=== PATIENT | male | born 1960 | race Caucasian/White ===

== ENCOUNTER 2019-11-01 20:54 | Outpatient (REF) | payer OTHER, SELFPAY ==
[2019-11-01 21:07] LABS: Abs Immature Grans 0.02 k/cumm (0.0-0.09); Absolute Basophil Count 0.02 k/cumm (0.0-0.2); Absolute Eosinophil Count 0.16 k/cumm (0.0-0.7); Absolute Lymphocyte Count 0.44 k/cumm (1.2-3.4); Absolute Monocyte Count 1.15 k/cumm (0.11-0.7); Absolute Neutrophil Count 6.25 k/cumm (1.2-6.7); Basophils % 0.2; HCT 37.4 % (40.0-50.0); HGB 11.9 g/dL (13.5-17.5); Immature Grans % 0.2; Lymphocytes % 5.5; Mean Corp. HGB Concentration 31.8 g/dL (32.0-36.0); Mean Corpuscular Hemoglobin 27.3 pg (27.0-33.0); Mean Corpuscular Volume 85.8 fL (80-95); Mean Platelet Volume 9.7 fL (8.0-11.0); Monocytes % 14.3; Neutrophils % 77.8; Platelet Count 396 x1000/uL (130-400); RBC 4.36 m/cumm (4.50-6.00); RBC Distribution Width 14.6 % (11.8-14.1); White Blood Cell Count 8.04 k/cumm (4.4-10.8)
[2019-11-01 21:12] LABS: ALT 29 U/L (16-63); AST 11 U/L (15-37); Albumin 3.2 g/dL (3.4-5.0); Alkaline Phosphatase 61 U/L (46-116); Anion Gap 13.4 mmol/L (3-11); BUN 14 mg/dL (7-18); Bilirubin, Total 0.5 mg/dL (0.2-1.0); CO2 25.6 mmol/L (21.0-32.0); CREATININE 1.04 mg/dL (0.70-1.30); Calcium 9.1 mg/dL (8.5-10.1); Calculated LDL 92 mg/dL; Chloride 103 mmol/L (98-107); Cholesterol 140 mg/dL (<200); Glucose 92 mg/dL (74-106); HDL Cholesterol 39 mg/dL (40-60); Potassium 4.7 mmol/L (3.5-5.1); Sodium 142 mmol/L (136-145); TSH (W/Ref FT4) 1.78 uIU/mL (0.36-3.74); Triglyceride 47 mg/dL (<150)
[2019-11-01 21:25] LABS: Total Protein 6.9 g/dL (6.4-8.2)
[2019-11-01 21:59] LABS: ESR 107 mm/hr (1-20)
[2019-11-03 15:16] LABS: PSA, Screening 11.9 ng/mL (0.0-4.5)
[2019-11-04 12:51] LABS: IgA 134 mg/dL (85-499); Tissue Transglutaminase IgA <1.2 U/mL (<4.0)
== END 2019-11-01 21:14 ==
LOC: NCHCN 20:54
PROVIDERS: Visit Provider Family Medicine
DX: R10.30 Lower abdominal pain, unspecified (principal); R19.7 Diarrhea, unspecified; R53.83 Other fatigue; R63.4 Abnormal weight loss; R39.11 Hesitancy of micturition; Z12.5 Encounter for screening for malignant neoplasm of prostate
CPT/HCPCS: 80053; 80061; 82784; 83516; 84153; 85652; 84443; 85025; 86140

== ENCOUNTER 2021-01-31 13:28 | Outpatient (REF) | payer OTHER, SELFPAY ==
[2021-01-31 14:23] LABS: Anion Gap 12.3 mmol/L (3-11); BUN 20 mg/dL (7-18); CO2 22.7 mmol/L (21.0-32.0); CREATININE 1.1 mg/dL (0.70-1.30); Calcium 9.3 mg/dL (8.5-10.1); Calculated LDL 139 mg/dL (<100); Chloride 106 mmol/L (98-107); Cholesterol 209 mg/dL (<200); Glucose 112 mg/dL (74-106); HDL Cholesterol 42 mg/dL (40-60); Potassium 4.2 mmol/L (3.5-5.1); Sodium 141 mmol/L (136-145); Triglyceride 140 mg/dL (<150)
[2021-01-31 14:52] LABS: Hemoglobin A1C 5.4 % (<5.7)
== END 2021-01-31 13:29 | disposition home or self-care (01) ==
LOC: NCHCN 13:28
PROVIDERS: Visit Provider Internal Medicine
DX: R73.9 Hyperglycemia, unspecified (principal); R79.89 Other specified abnormal findings of blood chemistry; E66.9 Obesity, unspecified; R97.20 Elevated prostate specific antigen [PSA]; Z12.5 Encounter for screening for malignant neoplasm of prostate
CPT/HCPCS: 80048; 80061; 84153; 83036

== ENCOUNTER 2021-12-18 16:47 | Outpatient (REF) | payer OTHER, SELFPAY ==
[2021-12-18 23:05] LABS: PSA, Diagnostic 9.3 ng/mL (0.0-4.5)
== END 2021-12-18 16:48 | disposition home or self-care (01) ==
LOC: NCHCN 16:47
PROVIDERS: Visit Provider Internal Medicine
DX: R97.20 Elevated prostate specific antigen [PSA] (principal)
CPT/HCPCS: 84153

== ENCOUNTER 2022-08-28 15:18 | Outpatient (REF) | payer OTHER, SELFPAY ==
[2022-08-28 15:49] LABS: ALT 45 U/L (16-63); AST 24 U/L (15-37); Albumin 4.3 g/dL (3.4-5.0); Alkaline Phosphatase 74 U/L (46-116); BUN 17 mg/dL (7-18); Bilirubin, Total 0.5 mg/dL (0.2-1.0); Calcium 8.8 mg/dL (8.5-10.1); Calculated LDL 95 mg/dL (<100); Chloride 104 mmol/L (98-107); Cholesterol 197 mg/dL (<200); Estimated GFR 84.57 (mL/min/1.73m2); Glucose 160 mg/dL (74-106); HDL Cholesterol 40 mg/dL (40-60); Potassium 4.1 mmol/L (3.5-5.1); Sodium 140 mmol/L (136-145); Total Protein 6.9 g/dL (6.4-8.2); Triglyceride 310 mg/dL (<150)
== END 2022-08-28 15:19 | disposition home or self-care (01) ==
LOC: NCHCN 15:18
PROVIDERS: Visit Provider Internal Medicine
DX: E66.8 Other obesity (principal); R39.11 Hesitancy of micturition; Z13.220 Encounter for screening for lipoid disorders; Z12.5 Encounter for screening for malignant neoplasm of prostate
CPT/HCPCS: 80053; 80061; 84153

== ENCOUNTER 2023-02-24 11:18 | Outpatient (REF) | payer OTHER, SELFPAY ==
[2023-02-24 23:17] LABS: PSA, Screening 8.3 ng/mL (<=4.5)
== END 2023-02-24 11:19 | disposition home or self-care (01) ==
LOC: NCHCN 11:18
PROVIDERS: Visit Provider Internal Medicine
DX: R97.20 Elevated prostate specific antigen [PSA] (principal)
CPT/HCPCS: 84153

== ENCOUNTER 2024-01-30 08:05 | Outpatient (REF) | payer OTHER, SELFPAY ==
[2024-01-30 14:47] LABS: BUN 18 mg/dL (7-18); CREATININE 1.2 mg/dL (0.70-1.30); Calculated LDL 85 mg/dL (<100); Chloride 106 mmol/L (98-107); Cholesterol 177 mg/dL (<200); Estimated GFR 67.53 (mL/min/1.73m2); Glucose 140 mg/dL (74-106); HDL Cholesterol 41 mg/dL (40-60); Potassium 3.9 mmol/L (3.5-5.1); Sodium 142 mmol/L (136-145); Triglyceride 259 mg/dL (<150)
[2024-01-30 22:30] LABS: PSA, Screening 8.8 ng/mL (<=4.5)
== END 2024-01-30 08:06 | disposition home or self-care (01) ==
LOC: NCHCN 08:05
PROVIDERS: PCP Internal Medicine; Visit Provider Internal Medicine
DX: Z00.00 Encounter for general adult medical examination without abnormal findings (principal); Z13.220 Encounter for screening for lipoid disorders; Z13.228 Encounter for screening for other metabolic disorders; Z12.5 Encounter for screening for malignant neoplasm of prostate
CPT/HCPCS: 80048; 80061; 84153

== ENCOUNTER 2024-08-02 16:32 | Outpatient (REF) | payer MEDICARE, SELFPAY ==
[2024-08-02 16:11] LABS: Calculated LDL 101 mg/dL (<100); Cholesterol 189 mg/dL (<200); Glucose 142 mg/dL (74-106); HDL Cholesterol 41 mg/dL (40-60); Triglyceride 235 mg/dL (<150)
--- OUTSIDE RECORDS SUMMARY | 2024-08-02 16:38 | XMS_ITS | Data Portability ---
Author Organization [facility] Address [address] [place] [address] Care Team Providers Care Tape Controlled Machine Stitcher Name Role Phone M HEMATOLOGY AND ONCOLOGY Medical Oncologist Assessment No assessment recorded. Plan of Treatment Reminders Order Date Submit Date Provider Last Modified By Organization Details Last Modified Time Details Appointments Nurse Visit 2023 07:40A M Not available Not available Not available Follow Up 2023 09:20A M Not available Not available Not available Lab lipid panel, serum [address] [facility] (Registration ), [address] [place] [address] [place], [address], 02/06/2024 11:17:30 BMP, serum or plasma [address] [facility] (Registration ), [address] [place] [address] [place], [address], 02/06/2024 11:17:39 PSA, serum or plasma [address] [facility] (Registration ), [address] [place] [address] [place], [address], 02/06/2024 11:17:52 glucose, fasting, QN, serum or plasma 2023 024 [facility] ([facility] ), [address] [place] [address] [place], [address], 08/02/2024 07:50:28 PSA, serum or plasma 03/2023 [facility] [address] [place] [address] [place] [facility] [place], [address], 08/02/2024 07:50:28 lipid panel, serum 2023 [facility] ), [address] [place] [address] [place], [address], 08/02/2024 07:50:28 glucose, fasting, QN, serum or plasma 2023 [facility] ), [address] [place] [address] [place], [address], 08/02/2024 07:50:28 PSA, serum or plasma 2023 [facility] ), [address] [place] [address] [place], [address], 08/02/2024 07:50:28 lipid panel, serum 2023 024 [facility] ), [address] [place] [address] [place], [address], 08/02/2024 07:50:28 Referral None recorded . Procedures None recorded . Surgeries None recorded . Imaging None recorded . Medication Orders None recorded . Patient TargetsNo targets recorded. Patient Instructions Encounter Date Encounter Id Patient Instructions Last Modified By Organization Details Last Modified Time 02/06/2024 [id number] Try to increase water intake, try lemon water Limit the bagels with cream cheese Try more whole wheat toast with peanut butter Try plain yogurt with nuts and berries and flaxseed or something for higher protein healtheir breakfast Try alternative snacks instead of the granola bar - carrots, cottage cheese, nuts Get an audiology check at [facility] when you can [email or web address] Not available 02/06/2024 13:33:48 Reason for Referral None Reported. Results Created Date Observation Date Name Description Value Unit Range Abnormal Flag Note LastModifiedBy Organization Detail LastModifiedTime 03/15/01/30/2024 LASIC METAB OLIC PANEL calcium 9.0 mg/dL 8.5-10 .1 normal Not Available [address] [place], [address] 01/30/2024 14:50:42 01/30/20 24 01/30/2024 LASIC METAB OLIC PANEL glucose 140 mg/dL 74-106 high Not Available Lara oliveira [address] [place], [address] 01/30/2024 14:50:42 01/30/20 24 01/30/2024 LASIC METAB OLIC PANEL BUN 18 mg/dL 7-18 normal Not Available Lara oliveira [address] [place], [address] 01/30/2024 14:50:42 01/30/20 24 01/30/2024 LASIC METAB OLIC PANEL creatinine 1.2 mg/dL 0.70-1 .30 normal Not Available [address] [place], [address] 01/30/2024 14:50:42 01/30/20 24 01/30/2024 LASIC METAB OLIC PANEL estimated GFR 67.53 mL/min /1.73m 2 The eGFR is calcu lated from a serum creat inine using the CKD-E PI 2020 equat ion. Other varia bles requi red for the equat ion are gende r and age; this equat ion does not inclu de a race coeff icien t. This equat ion has simil ar overa ll perfo rmanc e to previ ous equat ions excep t value s may diffe r, in parti cular , in patie nts with highe r value s of eGFR and young er-ag ed adult s. Not Available [address] [place], [address] 01/30/2024 14:50:42 01/30/20 24 01/30/2024 LASIC METAB OLIC PANEL sodium 142 mmol/ L 136-14 5 normal Not Available [address] [place], [address] 01/30/2024 14:50:42 01/30/20 24 01/30/2024 LASIC METAB OLIC PANEL potassium 3.9 mmol/ L 3.5-5. 1 normal Not Available [address] [place], [address] 01/30/2024 14:50:42 01/30/20 24 01/30/2024 LASIC METAB OLIC PANEL chloride 106 mmol/ L 98-107 normal Not Available [address] [place], [address] 01/30/2024 14:50:42 01/30/20 24 01/30/2024 LASIC METAB OLIC PANEL CO2 22.0 mmol/ L 21.0-3 2.0 normal Not Available [address] [place], [address] 01/30/2024 14:50:42 01/30/20 24 01/30/2024 LASIC METAB OLIC PANEL anion gap 14.0 mmol/ L 3-11 high Not Available [address] [place], [address] 01/30/2024 14:50:42 01/30/20 24 01/30/2024 LIPID 2 cholesterol 177 mg/dL <200 Not Available [address] [place], [address] 01/30/2024 14:50:42 01/30/20 24 01/30/2024 LIPID 2 triglyceride 259 mg/dL <150 high Not Available [address] [place], [address] 01/30/2024 14:50:42 01/30/20 24 01/30/2024 LIPID 2 HDL cholesterol 41 mg/dL 40-60 Not Available [address] [place] [place], [address] 01/30/2024 14:50:42 01/30/20 24 01/30/2024 LIPID 2 calculated LDL 85 mg/dL <100 Natio nal Serena stero l Educa tion Progr am (NCEP -ATPI II) class ifica tions : Serena stero l <200 mg/dL Brendon able Serena stero l 200-2 39 mg/dL Borde rline High Serena stero l >or=2 40 mg/dL High HDL <40 mg/dL Low HDL >or=6 0 mg/dL High LDL <100 mg/dL Optim al LDL 100-1 29 mg/dL Near Optim al/Ab ove Optim al LDL 130-1 59 mg/dL Borde rline High LDL 160-1 89 mg/dL High LDL >or=1 90 mg/dL Very High *The above refer ence range is for adult s 18 years or older . Not Available [address] [place], [address] 01/30/2024 14:50:42 01/30/2001/30/2024 PSA, SCREE MELINDA PSA, screening 8.8 NG/mL <=4.5 abnormal NOTE: Serum PSA leeann ntrat ion shoul d not be inter prete d as absol yomba shoshone evide nce for the prese nce or absen ce of suzanen rosas se. Assay ed on Sieme ns ADVIA Centa ur XPT using chemi lumin escen t techn ology . Value s obtai genoveva by using diffe rent assay metho ds canno t be used inter carver eably . Test perfo rmed or refer red by [facility] [address] [place] [address] Not Available [address] [place], [address] 02/02/2024 08:39:30 08/02/20 24 08/02/2024 GLUCO SE glucose 142 mg/dL 74-106 high Not Available Lara oliveira [address] [place], [address] 08/02/2024 16:16:46 08/02/20 24 08/02/2024 LIPID 2 cholesterol 189 mg/dL <200 Not Available [facility] [address] [place], [address] 08/02/2024 16:16:47 08/02/20 24 08/02/2024 LIPID 2 triglyceride 235 mg/dL <150 high Not Available [address] [place], [address] 08/02/2024 16:16:47 08/02/20 24 08/02/2024 LIPID 2 HDL cholesterol 41 mg/dL 40-60 Not Available [place] [address] [facility] [place], [address] 08/02/2024 16:16:47 08/02/20 24 08/02/2024 LIPID 2 calculated LDL 101 mg/dL <100 high Natio nal Serena stero l Educa tion Progr am (NCEP -ATPI II) class ifica tions : Serena stero l <200 mg/dL Brendon able Serena stero l 200-2 39 mg/dL Borde rline High Serena stero l >or=2 40 mg/dL High HDL <40 mg/dL Low HDL >or=6 0 mg/dL High LDL <100 mg/dL Optim al LDL 100-1 29 mg/dL Near Optim al/Ab ove Optim al LDL 130-1 59 mg/dL Borde rline High LDL 160-1 89 mg/dL High LDL >or=1 90 mg/dL Very High *The above refer ence range is for adult s 18 years or older . Not Available [address] [place], [address] 08/02/2024 16:16:47 07/30/20 24 10/25/2021 XR, foot, 3 or more view No observ ation record ed. Not Available 07/30 01:22:56 07/30/20 24 11/11/2019 CT, abdom en + pelvi s, w/ contr ast No observ ation record ed. Not Available 07/30 01:22:57 07/30/20 24 10/25/2021 XR, ankle , 3 or more view No observ ation record ed. Not Available 07/30 01:22:58 07/30/20 24 11/02/2019 XR, kidne y + urete r + bladd er No observ ation record ed. Not Available 07/30 01:23:00 07/30/20 24 05/03/2021 CT, abdom en, w/ contr ast No observ ation record ed. Not Available 07/30 01:23:53 07/30/20 24 11/02/2019 XR, chest No observ ation record ed. Not Available 07/30 01:23:56 07/30/20 24 09/11/2020 CT, abdom en + pelvi s No observ ation record ed. Not Available 07/30 01:23:57 07/30/20 24 09/11/2020 CT, chest No observ ation record ed. Not Available 07/30 01:24:00 Result Notes None recorded. Problems Name Problem SNOMED Code Status Onset Date Resolution Date Notes Provider Name and Address Organization Details Recorded Time Kidney stone 48564212 Active 200602/01/20 21-nephr olithias is. Unknown stone type. Pain resolved after recent ED visit. Advised increasi ng water and trying lemon water. Creatini ne was elevated in the ED, will repeat today to ensure blood resoluti on to baseline . [place] [facility]. 4 19:25:25 History of polyp of colon 841978220 Active 201408/06/20 21-Hx of colonic polyps, adenomat ous -- Tubular adenomas 2020; 5-yr recall Virginiaher Gomez [facility] 4 19:24:30 Pain in finger of left hand 74506264328 9105 Active 2018 Virginia Patricia [facility] 4 19:27:13 Prostate specific antigen above referenc e range 120288342 Active 201811/02/20 19-speci fic antigen PSA 11.9 Virginiaher Gomez [facility]. 4 19:23:48 Diffuse large B-cell lymphoma 432302490 Active 201802/02/20 21-Diffu se large B-cell lymphoma -- RCHOP therapy with complete response , [facility] Virginiaher Gomez [facility] 4 19:22:22 Pain of right shoulder joint 44112534393 687440 [facility] 19:27:17 Obesity 235024340 Active 202002/01/20 21-blood pressure is at goal, will update lipids and A1c for screenin g today. Counsele ivette on lifestyl e changes to work on, congratu lated on cutting out sugar, advised increasi ng vegetabl e consumpt ion and water intake. Recent liver function tests were within normal limits and we will follow his yearly. [facility] 4 19:25:50 Eczema 29326341 Active 2020 Virginiaher Gomez [facility] 4 19:21:46 Obstruct ori sleep apnea syndrome 13126988 Active 2020 Virginiaher Gomez [facility] 4 19:26:14 Hyperlip idemia 31489761 Active 202009/04/20 22-CV risk is 11%-12%, informed of guidelin e recommen dation to start statin, he prefers to defer for now, will continue to monitor lipids yearly. also suggeste d increasi ng red yeast rice capsule but he prefers to keep it at 1 per day and follow over time. [facility] 4 19:23:01 Prostate specific antigen above referenc e range 589808042 Completed 202010/04/2021 Problem Code: R97.20; Problem Code Type: ICD-10; [facility] 4 19:23:48 Adult health examinat ion Active 2021 Virginia Gomez [facility] 4 19:27:26 Arthralg ia of the ankle and/or foot 198421635 Active 2022 Virginia Gomez [facility] 4 19:21:21 Pain of left shoulder joint 10412318166 448716 Active 2022 Virginia Patricia [facility] 4 19:26:48 History of SARS-CoV -2 11974122174 1686878 Completed 202203/03/2023 Problem Code: Z86.16; Problem Code Type: ICD-10; Not Available [facility] 3 05:17:45 Hypergly cemia 39949835 Completed 202009/04/2022 Problem Code: R73.9; Problem Code Type: ICD-10; Not Available [facility] 3 05:17:45 Benign neoplasm of colon 65012029 Completed 201408/13/2023 Problem Code: D12.6; Problem Code Type: ICD-10; Not Available [facility] 3 05:17:46 Abnormal weight loss 831238448 Completed 201801/31/2021 Problem Code: R63.4; Problem Code Type: ICD-10; Not Available [facility] 3 05:17:46 Generali zed hyperhid rosis 941687494 Completed 201803/03/2023 Problem Code: R61; Problem Code Type: ICD-10; Not Available [facility] 3 05:17:46 Diarrhea 26327880 Completed 201801/31/2021 Problem Code: R19.7; Problem Code Type: ICD-10; Not Available [facility] 3 05:17:46 Abdomina l pain 82451144 Completed 201801/31/2021 Problem Code: R10.9; Problem Code Type: ICD-10; Not Available [facility] 3 05:17:46 Hyperlip idemia screenin g Completed 201801/31/2021 Problem Code: Z13.220; Problem Code Type: ICD-10; Not Available [facility] 3 05:17:46 Hyperlip idemia screenin g Completed 202008/13/2023 Problem Code: Z13.220; Problem Code Type: ICD-10; Not Available [facility] 3 05:17:47 Imaging result abnormal 885989788 Completed 201812/06/2019 Problem Code: R93.89; Problem Code Type: ICD-10; Not Available [facility] 3 05:17:47 Synoviti s and tenosyno vitis 965415579 Completed 201808/13/2023 Problem Code: M65.9; Problem Code Type: ICD-10; Not Available [facility] 3 05:17:47 Anemia 918990139 Completed 201801/31/2021 Problem Code: D64.9; Problem Code Type: ICD-10; Not Available [facility] 3 05:17:47 Family history of malignan t neoplasm of digestiv e organ 272648789 Completed 201801/31/2021 Problem Code: Z80.0; Problem Code Type: ICD-10; Not Available [facility] 3 05:17:47 Non-Hodg kin's lymphoma (clinica l) 123027493 Completed 201808/13/2023 Problem Code: C85.98; Problem Code Type: ICD-10; Not Available [facility] 3 05:17:47 Lower urinary tract symptoms 773985002 Active 2023 KIMBERLY DONG MD [address], [place], [address] , [facility] 4 11:36:53 Problem Notes None recorded. Procedures Surgical History None recorded. Imaging Results Imaging Date Name Status LastModified by Organiz ation Details LastModified Time 10/25/2021 XR, foot, 3 or more view completed Information not available 07/30/2024 01:22:56 11/11/2019 CT, abdomen + pelvis, w/ contrast completed Information not available 07/30/2024 01:22:57 10/25/2021 XR, ankle, 3 or more view completed Information not available 07/30/2024 01:22:58 11/02/2019 XR, kidney + ureter + bladder completed Information not available 07/30/2024 01:23:00 05/03/2021 CT, abdomen, w/ contrast completed Information not available 07/30/2024 01:23:53 11/02/2019 XR, chest completed Information no t available 07/30/2024 01:23:56 09/11/2020 CT, abdomen + pelvis completed Information not available 07/30/2024 01:23:57 09/11/2020 CT, chest completed Information no t available 07/30/2024 01:24:00 Procedure Notes None recorded. Medical Equipment None Reported. Allergies No known drug allergies Medications Name Sig Start Date Stop Date Status Note LastModified by Organization Details LastModified Time Zyrtec 10 mg tablet 1 tab daily PRN 2020 active Not Available Not Available Not Avai lable flaxseed oil 1,000 mg capsule 2020 active Not Available Not Available Not Avai lable hydrocortis one 2.5 % topical cream apply cream twice a day as needed to affected area 2020 active Not Available Not Available Not Avai lable doxycycline hyclate 100 mg tablet Take 2 tabs po X 1 now 01/31 completed Not Available Not Available Not Available magnesium active Not Available Not Briana ilable Not Available red yeast rice 600 mg capsule daily 2020 active Not Available Not Available Not Avai lable Multivital 1 tab qd 2020 active Not Available Not Available Not Avai lable Probiotic 1 tab daily 2020 active Not Available Not Available Not Avai lable doxycycline hyclate 200 mg tablet,mary yed release Take one tablet by mouth now. 09/27 completed Not Available Not Available Not Available Paxlovid 300 mg (150 mg x 2)-100 mg tablets in a dose pack Take 3 tablet by mouth twice a day 12/03 completed Not Available Not Available Not Available Vitals Date Recorded Body height Body mass index (BMI) Body weight Body temperature Oxygen saturation Oxygen saturation in Arterial blood by Pulse oximetry Heart rate Systolic blood pressure Diastolic blood pressure Provider Name and Address Organization Details Last Updated DateTime 4 175.209 2 cm 38.7 kg/m2 287137. 92 g 97.6 [degF] 97 % 97 % 71 /min 128 mm[Hg] 76 mm[Hg] Faby Julian LPN [facility] 13:09:20 Social History Question Answer Notes LastModified by Organizat ion Details LastModified Time Tobacco Smoking Status Never Smoker Faby Julian LPN null, [facility] 02/06/2024 13:05:14 What Type Of Diet Are You Following? REGULAR [email or web address] Information n ot available 02/06/2024 How Many Times Per Week Do You Exercise? 1-2 Times Per Week [email or web address] Information not available 02/06/2024 Would You Say That, In General, Your Health Is Good Information not available 02/06/2024 How Often Does Anyone, Including Family, Physically Hurt You? Never [email or web address] Information not available 02/06/2024 How Often Does Anyone, Including Family, Insult Or Talk Down To You? Never [email or web address] Information no t available 02/06/2024 How Often Does Anyone, Including Family, Threaten You With Harm? Never [email or web address] Information not available 02/06/2024 How Often Does Anyone, Including Family, Scream Or Curse At You? Never [email or web address] Information not available 02/06/2024 Within The Past 12 Months, You Worried That Your Food Would Run Out Before You Got Money To Buy More. Never True [email or web address] Information n ot available 02/06/2024 Within The Past 12 Months, The Food You Bought Just Didn't Last And You Didn't Have Money To Get More. Never True Information n ot available 02/06/2024 How Hard Is It For You To Pay For The Very Basics Like Food, Housing, Medical Care, And Heating? Would You Say It Is: Not Hard At All [email or web address] Information not available 02/06/2024 In The Past 12 Months, Has Lack Of Reliable Transportation Kept You From Medical Appointments, Meetings, Work Or From Getting Things Needed For Daily Living? No [email or web address] Information not available 02/06/2024 What Is Your Housing Situation Today? I Have Housing. [email or web address] Information not available 02/06/2024 Who Do You Live With? , One Son [email or web address] Information not available 02/06/2024 How Often In The Past Year Have You Used Marijuana (including Smoking, Vaping, Dabbing, Or Edibles)? 4 Or More Times Per Week 1 Puff A Night [email or web address] Information not available 02/06/2024 How Often In The Past Year Have You Used Prescription Medications That Were Not Prescribed To You? Never [email or web address] Information n ot available 02/06/2024 How Often In The Past Year Have You Taken Your Own Prescription Medication More Than The Way It Was Prescribed Or For Different Reasons Than Its Intended Purpose? Never [email or web address] Information no t available 02/06/2024 How Often In The Past Year Have You Used Other Drugs (for Example, Heroin, Cocaine, Meth, Salvia, Inhalants)? Never [email or web address] Information not available 02/06/2024 Have You Ever Used IV Drugs? No [email or web address] Information not available 02/06/2024 Date Of Most Recent SBINS 02/06/2024 Information not available 02/06/2024 What Was The Date Of Your Most Recent Tobacco Screening? 02/06/2024 [email or web address] Information not available 02/06/2024 What Types Of Sporting Activities Do You Participate In? Walking, Active At Work, Carpentry [email or web address] Information not available 02/06/2024 Do You Have Any Dietary Restrictions? No [email or web address] Information not available 02/06/2024 Sex: Male Functional Status Question Answer Note LastModified by Organizat ion Details LastModified Time What is your exercise level? Occasional [email or web address] Information not available 02/06/2024 Mental Status None recorded. Family History Relationship Description Onset Age of this Age Resolved Age Notes Mother Family history of malignant neoplasm of lung Notes:*Problem: Mother: Dece ased, age 73, breast cancer Father: , 82, pancreatic cancer Brothers: 3 brothers, all well Children: 3 children (triplets) all well Medical History No medical history recorded. Immunizations Vaccine Type Date Status Provider Name and Address Organization Details Recorded Time Td (adult), 2 Lf tetanus toxoid, preservative free, adsorbed 12/18/2021 completed Not Available [facility] 09/26/2023 06:04:01 Influenza, split virus, quadrivalent, PF 09/04/2022 completed Not Available [facility] 09/26/2023 06:04:01 zoster recombinant 12/18/2021 completed Not Available [facility] 09/26/2023 06:04:01 zoster recombinant 02/25/2022 completed Not Available [facility] 09/26/2023 06:04:01 COVID-19, mRNA, LNP-S, PF, 100 mcg/0.5mL dose or 50 mcg/0.25mL dose 01/31/2021 completed Not Available [facility] 09/26/20 06:04:01 COVID-19, mRNA, LNP-S, PF, 100 mcg/0.5mL dose or 50 mcg/0.25mL dose 02/28/2021 completed Not Available [facility] 09/26/20 06:04:02 COVID-19, mRNA, LNP-S, PF, 100 mcg/0.5mL dose or 50 mcg/0.25mL dose 10/20/2021 completed Not Available [facility] 09/26/20 06:04:02 COVID-19, mRNA, LNP-S, bivalent, PF, 30 mcg/0.3 mL dose 10/16/2022 completed Not Available [facility] 09/26/2023 06:04:02 Past Encounters Encounter ID Performer Location Encounter Start Date Encounter Closed Date Diagnosis/Indication Diagnosis SNOMED-CT Code Diagnosis ICD10 Code [id number] YINKA PHILLIPS [address] [address] 01/30/2024 07:34:44 01/30/2024 07:42:43 Adult health examination 588521675 Z00.00 [id number] Faby Julian [address] [address] 02/06/2024 12:58:35 02/06/2024 14:03:01 Adult health examination 869630831 Z00.00 Obstructiv e sleep apnea syndrome 74308587 G47.33 Obesity 445592031 E66.9 Prostate s pecific antigen above reference range 473070802 R97.20 Hyperlipidemia 72535729 E78.5 Diffuse la rge B-cell lymphoma 518013503 C83.30 Lower urin celena tract symptoms 127321383 R39.9 [id number] YINKA PHILLIPS LPN [facility] [address] [place] [address] 08/02/2024 07:32:24 08/02/2024 07:43:07 Obesity 677161006 E66.9 Prostate s pecific antigen above reference range 404038719 R97.20 Hyperlipidemia 17698616 E78.5 Health Concerns Section Related Observation LastModified by Organization Detai ls LastModified Time None Recorded Concern Status LastModified by Organization Details LastModified Time None Recorded Advance Directives Directive None Recorded Payers Encounter Date Sequence Insurance Name Policy Number Policy Velasquez Covered Member ID Velasquez Member ID Guarantor Name 01/30/2024 1 [facility] ([facility] [id number] Geo Katharine Martinez [id number] Geo Martinez 02/06/2024 1 [facility] ([facility] [id number] Geo Katharine Martinez [id number] Geo Martinez 08/02/2024 1 [place] - [facility] (MEDICARE) Geo Martinez [id number] Geo Martinez Notes Date Note Type Note Provider Name and Address Organization Details Recorded Time 02/06/2024 text/html HPI Notes: Here for an annual exam. Overall, he feels well. Has been taking magnesium and b12 now to help wtih leg cramps and numbness/tingling in the feet - these have helped, pleased with improvement. He doesn't always drink enough water. The urinary symptoms are stable, has some urinary frequency during the day and reduced stream, but makes it through the night most of the time without getting up. His weight is up a bit. He feels he'll be able to increase walking now that his legs are feeling better. He hardly eats sweets. No alcohol. He has a bagel with cream cheese first thing in the morning because it's one of the few things that doesn't give him an upset stomach (cereal and oatmeal give him loose stools with cramps). He sometimes has eggs for breakfast but not often He sometimes has peanut butter toast He normally has a bowel movement once a day. He often has a granola bar later in the morning when he has a bagel for breakfast, this doesn't keep him full. Would like skin check but has no concerns. CPAP is working reasonably well, no longer snoring. Hearing is not great, he has a pair of hearing aids at home but they don't work that well. Plans to check out [facility]. He has mild chronic aches and pains. left ankle, left shoulder. Some discomfort with walking, difficulty lifting. Doesn't take any analgesics however, manages ok. 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 Enjoys this work. Faby Julian LPN [facility] [place] [facility], [facility]. 02/15/2024 14:00:24
--- OUTSIDE RECORDS SUMMARY | 2024-08-02 16:38 | XMS_ITS | Continuity of Care Document ---
Author Organization [place] - [facility] Address [address] [place] [address] Care Team Providers Care Technology Internship Name Role Phone [facility] Medical Oncologist Assessment No assessment recorded. Plan of Treatment Reminders Order Date Submit Date Provider Last Modified By Organization Details Last Modified Time Details Appointments Nurse Visit 2023 07:40A M Not available Not available Not available Follow Up 2023 09:20A M Not available Not available Not available Lab glucose, fasting, QN, serum or plasma [address] [facility] (Registration ), [address] [place] [address] [place], [address], 08/02/2024 07:50:28 PSA, serum or plasma [address] [facility] (Registration ), [address] [place] [address] [place], [address], 08/02/2024 07:50:28 lipid panel, serum [address] [facility] (Registration ), [address] [place] [address] [place], [address], 08/02/2024 07:50:28 Referral None recorded . Procedures None recorded . Surgeries None recorded . Imaging None recorded . Medication Orders None recorded . Patient TargetsNo targets recorded. Patient InstructionsNo instructions recorded. Reason for Referral None Reported. Results Created Date Observation Date Name Description Value Unit Range Abnormal Flag Note LastModifiedBy Organization Detail LastModifiedTime 07/30/20 24 10/25/2021 XR, foot, 3 or [...] Address Organization Details Recorded Time Kidney stone 25377232 Active 200602/01/20 21-nephr olithias is. Unknown stone type. Pain resolved after recent ED visit. Advised increasi ng water and trying lemon water. Creatini ne was elevated in the ED, will repeat today to ensure blood resoluti on to baseline . [place] ram, [place] - [facility]. 4 19:25:25 History of polyp of colon 347461154 Active 201408/06/20 21-Hx of colonic polyps, adenomat ous -- Tubular adenomas 2020; [facility] 4 19:24:30 Pain in finger of left hand 04547133834 9105 Active 2018 Virginia Gomez [facility] 4 19:27:13 Prostate specific antigen above referenc e range 288692413 Active 201811/02/20 19-speci fic antigen PSA 11.9 Virginiaher Gomez [facility] 4 19:23:48 Diffuse large B-cell lymphoma 759598067 Active 201802/02/20 21-Diffu se large B-cell lymphoma -- RCHOP therapy with complete response , [facility] Virginiaher Gomez [facility] 4 19:22:22 Pain of right shoulder joint 14364795150 930219 Active 2020 Virginiaher Gomez [facility] 4 19:27:17 Obesity 093189926 Active 202002/01/20 21-blood pressure is at goal, will update lipids and A1c for nicolette castro today. Counselaquiles steele on lifestyl e changes to work on, congratu lated on cutting out sugar, advised increasi ng vegetabl e consumpt ion and water intake. Recent liver function tests were within normal limits and we will follow his yearly. [facility] 4 19:25:50 Eczema 19037004 Active 2020 [facility] 4 19:21:46 Obstruct ori sleep apnea syndrome 13644682 Active 2020 Virginiaher Gomez [facility] 4 19:26:14 Hyperlip idemia 75752669 Active 202009/04/20 22-CV risk is 11%-12%, informed of guidelin e recommen dation to start statin, he prefers to defer for now, will continue to monitor lipids yearly. also suggeste d increasi ng red yeast rice capsule but he prefers to keep it at 1 per day and follow over time. [facility] 4 19:23:01 Prostate specific antigen above referenc e range 914541266 Completed 202010/04/2021 Problem Code: R97.20; Problem Code Type: ICD-10; Virginiaher Gomez [facility] 4 19:23:48 Adult health examinat ion Active 2021 Virginiaher Gomez [facility] 4 19:27:26 Arthralg ia of the ankle and/or foot 503562451 Active 2022 [facility] Patricia [facility] 4 19:21:21 Pain of left shoulder joint 17384564650 271317 Active 2022 [facility] Patricia [facility] 4 19:26:48 History of SARS-CoV -2 18905992365 6255845 Completed 202203/03/2023 Problem Code: Z86.16; Problem Code Type: ICD-10; Not Available [facility] 3 05:17:45 Hypergly cemia 03668632 Completed 202009/04/2022 Problem Code: R73.9; Problem Code Type: ICD-10; Not Available [facility] 3 05:17:45 Benign neoplasm of colon 55621035 Completed 201408/13/2023 Problem Code: D12.6; Problem Code Type: ICD-10; Not Available [facility] 3 05:17:46 Abnormal weight loss 903549999 Completed 201801/31/2021 Problem Code: R63.4; Problem Code Type: ICD-10; Not Available [facility] 3 05:17:46 Generali zed hyperhid rosis 494675495 Completed 201803/03/2023 Problem Code: R61; Problem Code Type: ICD-10; Not Available [facility] 3 05:17:46 Diarrhea 28632279 Completed 201801/31/2021 Problem Code: R19.7; Problem Code Type: ICD-10; Not Available [facility] 3 05:17:46 Abdomina l pain 49367613 Completed 201801/31/2021 Problem Code: R10.9; Problem Code Type: ICD-10; Not Available [facility] 3 05:17:46 Hyperlip idemia screenin g Completed 201801/31/2021 Problem Code: Z13.220; Problem Code Type: ICD-10; Not Available [facility] 3 05:17:46 Hyperlip idemia screenin g Completed 202008/13/2023 Problem Code: Z13.220; Problem Code Type: ICD-10; Not Available [facility] 3 05:17:47 Imaging result abnormal 972078411 Completed 201812/06/2019 Problem Code: R93.89; Problem Code Type: ICD-10; Not Available [facility] 3 05:17:47 Synoviti s and tenosyno vitis 500307583 Completed 201808/13/2023 Problem Code: M65.9; Problem Code Type: ICD-10; Not Available [facility] 3 05:17:47 Anemia 968425322 Completed 201801/31/2021 Problem Code: D64.9; Problem Code Type: ICD-10; Not Available [facility] 3 05:17:47 Family history of malignan t neoplasm of digestiv e organ 877254967 Completed 201801/31/2021 Problem Code: Z80.0; Problem Code Type: ICD-10; Not Available [facility] 3 05:17:47 Non-Hodg kin's lymphoma (clinica l) 737637573 Completed 201808/13/2023 Problem Code: C85.98; Problem Code Type: ICD-10; Not Available [facility] 3 05:17:47 Lower urinary tract symptoms 989613805 Active 2023 KIMBERLY DONG MD [address], [place], [address] , [facility] 11:36:53 Problem Notes None recorded. Medical Equipment None Reported. [...] Not Available Not Available Not Available Vitals None Recorded Social History Question Answer Notes LastModified by Organizat ion Details LastModified Time Tobacco Smoking Status Never Smoker Faby Julian LPN null, [place] [facility]. 02/06/2024 13:05:14 What Type Of Diet Are You Following? REGULAR [email or web address] Information n ot available 02/06/2024 How Many Times Per Week Do You Exercise? 1-2 Times Per Week [email or web address] Information not available 02/06/2024 Would You Say That, In General, Your Health Is Good Information not available 02/06/2024 How Often Does Anyone, Including Family, Physically Hurt You? Never [email or web address] Information not available 02/06/2024 How Often Does Anyone, Including Family, Insult Or Talk Down To You? Never [email or web address] Information no t available 02/06/2024 How Often Does Anyone, Including Family, Threaten You With Harm? Never [email or web address] Information not available 02/06/2024 How Often Does Anyone, Including Family, Scream Or Curse At You? Never [email or web address] Information not available 02/06/2024 Within The Past 12 Months, You Worried That Your Food Would Run Out Before You Got Money To Buy More. Never True [email or web address] Information n ot available 02/06/2024 Within The Past 12 Months, The Food You Bought Just Didn't Last And You Didn't Have Money To Get More. Never True [email or web address] Information n ot available 02/06/2024 How Hard Is It For You To Pay For The Very Basics Like Food, Housing, Medical Care, And Heating? Would You Say It Is: Not Hard At All [email or web address] Information not available 02/06/2024 In The Past 12 Months, Has Lack Of Reliable Transportation Kept You From Medical Appointments, Meetings, Work Or From Getting Things Needed For Daily Living? No [email or web address] Information not available 02/06/2024 What Is Your Housing Situation Today? I Have Housing. [email or web address] Information not available 02/06/2024 Who Do You Live With? , One Son [email or web address] Information not available 02/06/2024 How Often In The Past Year Have You Used Marijuana (including Smoking, Vaping, Dabbing, Or Edibles)? 4 Or More Times Per Week 1 Puff A Night [email or web address] Information not available 02/06/2024 How Often In The Past Year Have You Used Prescription Medications That Were Not Prescribed To You? Never Information n ot available 02/06/2024 How Often In The Past Year Have You Taken Your Own Prescription Medication More Than The Way It Was Prescribed Or For Different Reasons Than Its Intended Purpose? Never [email or web address] Information no t available 02/06/2024 How Often In The Past Year Have You Used Other Drugs (for Example, Heroin, Cocaine, Meth, Salvia, Inhalants)? Never [email or web address] Information not available 02/06/2024 Have You Ever Used IV Drugs? No [email or web address] Information not available 02/06/2024 Date Of Most Recent SBINS 02/06/2024 [email or web address] Information not available 02/06/2024 What Was The Date Of Your Most Recent Tobacco Screening? 02/06/2024 [email or web address] Information not available 02/06/2024 What Types Of Sporting Activities Do You Participate In? Walking, Active At Work, Carpentry [email or web address] Information not available 02/06/2024 Do You Have Any Dietary Restrictions? No Information not available 02/06/2024 Sex: Male Functional Status Question Answer Note LastModified by Organizat ion Details LastModified Time What is your exercise level? Occasional [email or web address] Information not available 02/06/2024 Mental Status None recorded. Family History Relationship Description Onset Age of this Age Resolved Age Notes LastModified by Organization Details LastModified Time Mother Family history of malignant neoplasm of lung [email or web address] Not available 2022 03:54:29 Notes:*Problem: Mother: Dece ased, age 73, breast cancer Father: , 82, pancreatic cancer Brothers: 3 brothers, all well Children: 3 children (triplets) all well Medical History No medical history recorded. Immunizations Vaccine Type Date Status Provider Name and Address Organization Details Recorded Time Td (adult), 2 Lf tetanus toxoid, preservative free, adsorbed 12/18/2021 completed Not Available [facility] 09/26/2023 06:04:01 Influenza, split virus, quadrivalent, PF 09/04/2022 completed Not Available [facility] 09/26/2023 06:04:01 zoster recombinant 12/18/2021 completed Not Available [facility] 09/26/2023 06:04:01 zoster recombinant 02/25/2022 completed Not Available [facility] 09/26/2023 06:04:01 COVID-19, mRNA, LNP-S, PF, 100 mcg/0.5mL dose or 50 mcg/0.25mL dose 01/31/2021 completed Not Available [facility] 09/26/20 06:04:01 COVID-19, mRNA, LNP-S, PF, 100 mcg/0.5mL dose or 50 mcg/0.25mL dose 02/28/2021 completed Not Available [facility] 09/26/20 06:04:02 COVID-19, mRNA, LNP-S, PF, 100 mcg/0.5mL dose or 50 mcg/0.25mL dose 10/20/2021 completed Not Available [facility] 09/26/20 06:04:02 COVID-19, mRNA, LNP-S, bivalent, PF, 30 mcg/0.3 mL dose 10/16/2022 completed Not Available [facility] 09/26/2023 06:04:02 Past Encounters Encounter ID Performer Location Encounter Start Date Encounter Closed Date Diagnosis/Indication Diagnosis SNOMED-CT Code Diagnosis ICD10 Code [id number] YINKA PHILLIPS LPN [address] [address] 08/02/2024 07:32:24 08/02/2024 07:43:07 Obesity 274070940 E66.9 Prostate s pecific antigen above reference range 030546917 R97.20 Hyperlipidemia 25364583 E78.5 Health Concerns Section Related Observation LastModified by Organization Detai ls LastModified Time None Recorded Concern Status LastModified by Organization Details LastModified Time None Recorded Payers Encounter Date Sequence Insurance Name Policy Number Policy Velasquez Covered Member ID Velasquez Member ID Guarantor Name 08/02/2024 1 MEDICARE-[place] - [facility] (MEDICARE) Geo Martinez [id number] Geo Martinez
--- OUTSIDE RECORDS SUMMARY | 2024-08-02 16:39 | XMS_ITS ---
Author Organization Unknown Address [address] [place] [phone] Phone Care Team Providers Care Information Coder Name Role Phone JACOB Chen Attending Unavailable IKER Carson Primary Unavailable Social History Type Status Start Date End Date Code Code Syst em Smoking History Never smoker (Never Smoked) 599637003 SNOMED CT Sex Male Medications Medication Start Date End Date Route Frequency Dose Code Code System Medication Instructions Home Meds Ciprofloxacin 500MG Oral Tablet 05/04/2021 Unknown ORAL EVERY 12 HOURS 500 MILLIGRAMS 036595 RxNorm TAKE 500 MILLIGRAMS ORAL EVERY 12 HOURS Hospital Discharge Instructions Should you have any questions prior to discharge, please contact a member of your healthcare team. If you have left the hospital and have any questions, please contact your primary care physician. Reason For Referral No Data Found Allergies and Adverse Reactions Allergy Substance Reaction Severity Start Date Concern Status Co de Code System No Known Drug Allergies Moderate Active 041124946 SNOMED-CT Plan of Treatment No Data Found Encounters Encounter Diagnosis Start Date Code Code Sys tem Arthritis of left ankle 10/30/2021 [id number] SNOMED-CT Personal Care Team Section Performer Name Performer Role Active Date Inactive Da te
--- OUTSIDE RECORDS SUMMARY | 2024-08-02 16:39 | XMS_ITS ---
Author Organization Unknown Address [address] [place] [phone] Phone Care Team Providers Care Senior Information Systems Architect Name Role Phone DANNY Parker Attending Unavailable IKER Carson Primary Unavailable Results XR ANKLE LT 3V* - Completed: 10/25/2021 10:29 LOINC: LEFT ANKLE:Three views were obtained. Comparison is 12/27/11. There are advanced degenerative changes in the left ankle which have progressed since 12/27/11. There is now marked narrowing of the lateral aspect of the ankle joint with lateral tilt of the talus. Hypertrophic changes are seen at the articulation between the talus and the fibula. Well corticated osseous densities are seen adjacent to the medial malleolus likely reflecting remote injury. No acute fracture or dislocation is seen. There is a density interposed between the talus and the fibula which may represent a loose body. The soft tissues are grossly unremarkable. IMPRESSION:Marked degenerative changes seen at the left ankle. Dictated by: EDUARDO FOX MD Transcribed by: MICHAEL 10/25/21/12:29 D , October 25, 2021 10:03:15 AM [id number] Electronically Reviewed and Signed By: EDUARDO FOX MD 10/25/21 15:01 Copy for: [facility] [employer] [employer] MGMT XR FOOT LT 3V MIN* - Complet ed: 10/25/2021 10:29 LOINC: LEFT FOOT - 3 VIEWS:No prior s. There is a 7 mm well circumscribed cystic lesion in the base of the proximal phalanx of the left 3rd toe. No pathologic fracture or periosteal reaction is seen. No associated soft tissue calcifications are present. The articular surface is well maintained. Mild degenerative changes are seen in the foot. There are degenerative changes of the ankle discussed on the x-ray of the left ankle performed the same day. The bones are intact and normally mineralized. The soft tissues are unremarkable. IMPRESSION: 1. Mild degenerative change is seen in the foot. 2. Benign appearing cyst in the proximal phalanx of the left 3rd toe. No evidence of a pathologic fracture or periosteal reaction is seen. Dictated by: MARY FOX MD Transcribed by: MICHAEL 10/25/21/12:25 D October 9:59:58 AM [id number] Electronically Reviewed and Signed By: EDUARDO FOX MD 10/25/21 15:01 Copy for: 185 [facility] [employer] MGMT Social History Type Status Start Date End Date Code Code Syst em Smoking History Never smoker (Never Smoked) 475722599 SNOMED CT Sex Male Medications Medication Start Date End Date Route Frequency Dose Code Code System Medication Instructions Home Meds Ciprofloxacin 500MG Oral Tablet 05/04/2021 Unknown ORAL EVERY 12 HOURS 500 MILLIGRAMS 637227 RxNorm TAKE 500 MILLIGRAMS ORAL EVERY 12 [...] System No Known Drug Allergies Moderate Active 616172414 SNOMED-CT Plan of Treatment No Data Found Encounters Encounter Diagnosis Start Date Code Code Sys tem Idiopathic osteoarthritis 10/25/2021 130745188 SN OMED-CT Personal Care Team Section Performer Name Performer Role Active Date Inactive Da tyler
--- OUTSIDE RECORDS SUMMARY | 2024-08-02 16:39 | XMS_ITS ---
Author Organization Unknown Address [address] [place] [address] [phone] Phone Care Team Providers Care Suspect Artist Supervisor Name Role Phone YISEL Reyes Attending Unavailable IKER Carson Primary Unavailable Social History Type Status Start Date End Date Code Code Syst em Smoking History Never smoker (Never Smoked) 460763534 SNOMED CT Sex Male Medications Medication Start Date End Date Route Frequency Dose Code Code System Medication Instructions Home Meds Ciprofloxacin 500MG Oral Tablet 05/04/2021 Unknown ORAL EVERY 12 HOURS 500 MILLIGRAMS 869048 RxNorm TAKE 500 MILLIGRAMS ORAL EVERY 12 [...] System No Known Drug Allergies Moderate Active 752017583 SNOMED-CT Plan of Treatment No Data Found Encounters Encounter Diagnosis Start Date Code Code Sys tem Pain in left shoulder 04/07/2023 SNOMED -CT Personal Care Team Section Performer Name Performer Role Active Date Inactive Da te
--- OUTSIDE RECORDS SUMMARY | 2024-08-02 16:40 | XMS_ITS ---
Author Organization Unknown Address [address] [place] [address] [phone] Phone Care Team Providers Care Process Helper Name Role Phone DANNY TRACEY DPM Attending Unavailable IKER HARRIS Primary Unavailable Social History Type Status Start Date End Date Code Code Syst em Smoking History Never smoker (Never Smoked) 516392606 SNOMED CT Sex Male Medications Medication Start Date End Date Route Frequency Dose Code Code System Medication Instructions Home Meds Ciprofloxacin 500MG Oral Tablet 05/04/2021 Unknown ORAL EVERY 12 HOURS 500 MILLIGRAMS 620858 RxNorm TAKE 500 MILLIGRAMS ORAL EVERY 12 [...] System No Known Drug Allergies Moderate Active 112634520 SNOMED-CT Plan of Treatment No Data Found Encounters Encounter Diagnosis Start Date Code Code Sys tem Right tarsal tunnel syndrome 06/26/2021 313591913582 100 SNOMED-CT Personal Care Team Section Performer Name Performer Role Active Date Inactive Da te
--- OUTSIDE RECORDS SUMMARY | 2024-08-02 16:40 | XMS_ITS ---
Author Organization Unknown Address [address] [place], [place] [id number] Phone Care Team Providers Care Coupon Manifest Clerk Name Role Phone Unavailable Xwatchlist Unavailable GRADY Reyes MD Attending Unavailable MIKE Remy MD ER Unavailable IKER HARRIS Primary Unavailable MERARI MERCEDES MD Secondary Unavailable Results BASIC METABOLIC PANEL (BMP) - Collect Date/Time: 05/04/2021 06:51 [facility] ID: [id number] [address] [place], [place], [address] LOINC: 22730-8 Test Value Unit Reference Range Code Code System Flag GLUCOSE 101 mg/dL L=70 H=116 2345-7 LOINC BUN 17 mg/dL L=6 H=25 3094-0 LOINC CREATININE 1.26 mg/dL L=0.67 H=1.17 2160-0 LOINC H SODIUM SERUM 140 mmol/L L=136 H=145 2951-2 LOINC POTASSIUM SERUM 3.7 mmol/L L=3.4 H=5.2 2823-3 LOINC CHLORIDE SERUM 107 mmol/L L=96 H=110 2075-0 LOINC CARBON DIOXIDE (CO2) 26 mmol/L L=22 H=34 2028-9 LOINC ANION GAP 7.1 mmol/L 88525-8 LOINC CALCIUM SERUM 8.1 mg/dL L=8.2 H=10.2 27651-0 LOINC L AGE 61 years eGFR (non-Afr.Amer.) 58 mL/min 62891-1 LOINC eGFR (Afr-Andorran) 70 mL/min 11587-6 LOINC CBC W/ DIFFERENTIAL - Collec t Date/Time: 05/04/2021 06:51 [facility] ID: [id number] [address] [place] [address], [address] LOINC: 97721-1 Test Value Unit Reference Range Code Code System Flag WBC 14.06 th/cmm L=5.00 H=10.00 6690-2 LOINC H NEUT % 86.0 % L=40.0 H=80.0 H LYMPH % 6.0 % L=10.0 H=50.0 L MONO % 6.9 % L=2.0 H=12.0 01866-3 LOINC EOS % 0.6 % L=0.0 H=8.0 BASO % 0.1 % L=0.0 H=3.0 IG % 0.4 % L=0.0 H=1.1 2514-8 LOINC NRBC % 0.0 % L=0.0 H=0.0 80704-6 LOINC NEUT abs count 12.1 th/cmm L=1.6 H=8.4 751-8 LOINC H LYMPH abs count 0.8 th/cmm L=1.5 H=4.0 731-0 LOINC L MONO abs count 1.0 th/cmm L=0.2 H=1.0 742-7 LOINC EOS abs count 0.1 th/cmm L=0.0 H=0.5 711-2 LOINC BASO abs count 0.0 th/cmm L=0.0 H=0.2 704-7 LOINC IG abs count 0.1 th/cmm L=0.0 H=0.1 13801-5 LOINC NRBC abs count 0.0 mil/cmm L=0.0 H=0.0 99136-1 LOINC RBC 4.11 mil/cmm L=4.30 H=6.20 789-8 LOINC L HEMOGLOBIN 13.1 gm/dL L=13.0 H=17.0 718-7 LOINC HEMATOCRIT 38 % L=45 H=52 4544-3 LOINC L MCV 93 fL L=82 H=92 787-2 LOINC H MCH 31.9 pg L=27.0 H=31.0 785-6 LOINC H MCHC 34.3 % L=32.0 H=36.0 786-4 LOINC RDW-SD 43.5 fL L=39.0 H=49.0 788-0 LOINC PLATELET COUNT 136 th/cmm L=150 H=450 777-3 LOINC L [facility] TINO BUCKLEYX - Colle ct Date/Time: 05/03/2021 10:02 [facility] ID: [id number] [address] [place], [place], [address] LOINC: 60093-1 Test Value Unit Reference Range Code Code System Flag SOURCE= Nasopharyngeal Tier- INPATIENT/ED SARS COV2 RNA: NEGATIVE REFERENCE RANGE: NEGAT 06123-6 LOINC URINALYSIS WITH REFLEX CULT IF POSITIVE - Collect Date/Time: 05/03/2021 05:25 [facility] ID: [id number] [address] [place], [place], [address] LOINC: 39625-7 Test Value Unit Reference Range Code Code System Flag COLLECTION MODE: Clean Catch Color STRAW yellow 5778-6 LOINC Appearance CLEAR clear 5767-9 LOINC Glucose urine NEGATIVE negative mg/dl 37903-6 LOINC Bilirubin NEGATIVE negative 5770-3 LOINC Ketones NEGATIVE negative mg/dl 2514-8 LOINC Spec gravity 1.020 1.003 - 1.030 5811-5 LOINC pH urine 6.0 5.0 - 7.0 2756-5 LOINC Protein NEGATIVE negative mg/dl 28550-3 LOINC Urobilinogen 0.2 <or= 1 EU/dl 08273-5 LOINC Nitrite. NEGATIVE negative 5802-4 LOINC Blood SMALL negative 5794-3 LOINC A Leukocytes. TRACE negative A MICROSCOPIC INDICATED WBCs. 0-5 0-5 / hpf 19624-9 LOINC RBCs 0-5 0-5 / hpf 32407-9 LOINC Epith cells 0-5 0-5 / hpf 80212-3 LOINC Cell types transition Crystals none none Bacteria minimal none Mucus present none 8247-9 LOINC Casts none none /lpf 75300-6 LOINC Other 45821-0 LOINC LACTIC ACID - Collect Date/T shanelle: 05/03/2021 05:25 [facility] ID: [id number] [address] [place] [address], [address] LOINC: 64209-0 Test Value Unit Reference Range Code Code System Flag LACTIC ACID 2.6 mmol/L L=0.7 H=2.1 17202-1 LOINC H LIPASE - Collect Date/Time: 05/03/2021 05:25 [facility] ID: [id number] [address] [place] [address], [address] LOINC: 3040-3 Test Value Unit Reference Range Code Code System Flag LIPASE 60 U/L L=73 H=393 L COMPREHENSIVE METABOLIC PANE L (CMP) - Collect Date/Time: 05/03/2021 05:25 [facility] ID: [id number] [address] [place] [address], [address] LOINC: 66435-4 Test Value Unit Reference Range Code Code System Flag GLUCOSE 141 mg/dL L=70 H=116 2345-7 LOINC H BUN 19 mg/dL L=6 H=25 3094-0 LOINC CREATININE 1.42 mg/dL L=0.67 H=1.17 2160-0 LOINC H SODIUM SERUM 143 mmol/L L=136 H=145 2951-2 LOINC POTASSIUM SERUM 4.2 mmol/L L=3.4 H=5.2 2823-3 LOINC CHLORIDE SERUM 106 mmol/L L=96 H=110 2075-0 LOINC CARBON DIOXIDE (CO2) 27 mmol/L L=22 H=34 2028-9 LOINC ANION GAP 10.3 mmol/L 55584-6 LOINC CALCIUM SERUM 9.2 mg/dL L=8.2 H=10.2 36854-4 LOINC BILIRUBIN TOTAL 0.6 mg/dL L=0.0 H=1.3 1975-2 LOINC ALK. PHOS. 66 U/L L=46 H=116 6768-6 LOINC SGOT (AST) 27 U/L L=15 H=37 1920-8 LOINC SGPT (ALT) 61 U/L L=12 H=78 1742-6 LOINC TOTAL PROTEIN 7.5 gm/dL L=6.0 H=8.0 2885-2 LOINC ALBUMIN 4.4 gm/dL L=3.4 H=5.0 1751-7 LOINC AGE 61 years eGFR (non-Afr.Amer.) 51 mL/min 14215-5 LOINC eGFR (Afr-Andorran) 61 mL/min 30531-9 LOINC CBC W/ DIFFERENTIAL - Collec t Date/Time: 05/03/2021 05:25 [facility] ID: [id number] [address], [place], [address] LOINC: 19680-3 Test Value Unit Reference Range Code Code System Flag WBC 13.37 th/cmm L=5.00 H=10.00 6690-2 LOINC H NEUT % 91.4 % L=40.0 H=80.0 H LYMPH % 3.4 % L=10.0 H=50.0 L MONO % 4.9 % L=2.0 H=12.0 81256-6 LOINC EOS % 0.1 % L=0.0 H=8.0 BASO % 0.1 % L=0.0 H=3.0 IG % 0.1 % L=0.0 H=1.1 2514-8 LOINC NRBC % 0.0 % L=0.0 H=0.0 15746-5 LOINC NEUT abs count 12.2 th/cmm L=1.6 H=8.4 751-8 LOINC H LYMPH abs count 0.5 th/cmm L=1.5 H=4.0 731-0 LOINC L MONO abs count 0.7 th/cmm L=0.2 H=1.0 742-7 LOINC EOS abs count 0.0 th/cmm L=0.0 H=0.5 711-2 LOINC BASO abs count 0.0 th/cmm L=0.0 H=0.2 704-7 LOINC IG abs count 0.0 th/cmm L=0.0 H=0.1 96781-0 LOINC NRBC abs count 0.0 mil/cmm L=0.0 H=0.0 53149-1 LOINC RBC 5.17 mil/cmm L=4.30 H=6.20 789-8 LOINC HEMOGLOBIN 16.6 gm/dL L=13.0 H=17.0 718-7 LOINC HEMATOCRIT 47 % L=45 H=52 4544-3 LOINC MCV 91 fL L=82 H=92 787-2 LOINC MCH 32.1 pg L=27.0 H=31.0 785-6 LOINC H MCHC 35.3 % L=32.0 H=36.0 786-4 LOINC RDW-SD 40.9 fL L=39.0 H=49.0 788-0 LOINC PLATELET COUNT 180 th/cmm L=150 H=450 777-[address] ABDOMEN/PELVIS WITH IV ON LY - Completed: 05/03/2021 06:52 LOINC: Radiation optimization: All CT scans at this facility use at least one of these dose optimization techniques: automated exposure control; mA and/or kV adjustment per patient size (includes targeted exams where dose is matched to clinical indication); or iterative reconstruction. CT SCAN OF THE ABDOMEN AND PELVIS CT scan of the abdomen and pelvis was performed following the uneventful administration of intravenous contrast material. Comparison is 11/09/19. Mild dependent atelectasis is present. There is fatty infiltration of the liver. No suspicious mass is seen. The gallbladder is contracted. No biliary ductal dilatation. The portal, superior mesenteric and splenic veins are patent. The pancreas is unremarkable. No peripancreatic fluid collections are seen. The spleen and adrenal glands are unremarkable. The kidneys show normal and symmetric enhancement. There are bilateral simple cysts. No follow up is recommended. No evidence of obstruction. The urinary bladder is intact. The prostate gland is enlarged impinging upon the base of the urinary bladder. There is atherosclerosis of the abdominal aorta but no aneurysmal dilatation. No pneumoperitoneum, ascites or significant adenopathy. The bowel shows no evidence of obstruction. There are a few diverticula seen in the sigmoid colon but no evidence of acute diverticulitis. There is thickening of the wall of the cecum and portion of the ascending colon with pericolonic inflammatory changes. There is a normal appendix present. The remainder of the bowel is unremarkable. The soft tissues are unremarkable. There is L5 spondylolysis and grade 1 spondylolisthesis of L5 on S1. Degenerative changes are seen in the spine. IMPRESSION: 1. Focal thickening involving the portion of the ascending colon and cecum with pericolonic inflammatory stranding. An inflammatory infectious colitis should be considered. Edema related to recent colonoscopy may also be considered. Finally neoplasm should be considered for which correlation with colonoscopy result is recommended. 2. No evidence of pneumoperitoneum to suggest perforation. The findings were discussed with the Emergency Department on 05/03/21. Dictated by: MARY FOX M.D. RADIOLOGIST Transcribed by: [facility] [place] 05/03/21/11:10 D 05/03/2021 08:01:15 [id number] Electronically Reviewed and Signed By: EDUARDO FOX M.D. RADIOLOGIST 05/03/21 13:32 Social History Type Status Start Date End Date Code Code Syst em Smoking History Never smoker (Never Smoked) 989975980 SNOMED CT Sex Male Vital Signs Vital Sign Value Unit Cooper Value Cooper Unit Date/Time Recent/Initial? Code Code System Body Mass Index 36.92 kg/m2 05/03/2021 17:23 Initial 79888 -5 LOINC Systolic Blood Pressure 108 mm[Hg] 05/04/2021 07:56 Most Recent 8480- 6 LOINC Diastolic Blood Pressure 59 mm[Hg] 05/04/2021 07:56 Most Recent 8462- 4 LOINC Systolic Blood Pressure 117 mm[Hg] 05/03/2021 17:22 Initial 8480- 6 LOINC Diastolic Blood Pressure 60 mm[Hg] 05/03/2021 17:22 Initial 8462- 4 LOINC Body Surface Area 2.35 m2 05/03/2021 17:23 Initial 3140- 1 LOINC Height 175.260 0 cm 69.00 in 05/03/2021 17:23 Initial 8302- 2 LOINC O2 Saturation 96 % 2020 07:56 Most Recent 04155 -5 LOINC O2 Saturation 97 % 2020 17:22 Initial 92997 -5 LOINC Fraction of Inspired Oxygen 21 % 05/04/2021 07:56 Most Recent 3150- 0 LOINC Fraction of Inspired Oxygen 21 % 05/03/2021 19:35 Initial 3150- 0 LOINC Pulse 66.0 /min 05/04/2021 07:56 Most Recent 8867- 4 LOINC Pulse 66.0 /min 05/03/2021 17:22 Initial 8867- 4 LOINC Respiration 16 /min 05/04/20 21 07:56 Most Recent 9279- 1 LOINC Respiration 18 /min 05/03/20 21 17:22 Initial 9279- 1 LOINC Temperature 36.7 Kimberly 98.1 F 05/04/20 21 07:56 Most Recent 8310- 5 LOINC Temperature 36.9 Kimberly 98.4 F 05/03/20 21 17:22 Initial 8310- 5 LOINC Weight 113.40 kg 250.00 lbs 05/03/2021 17:23 Initial 66734 -7 LOINC Medications Medication Start Date End Date Route Frequency Dose Code Code System Medication Instructions Home Meds Ciprofloxacin 500MG Oral Tablet 05/04/2021 Unknown ORAL EVERY 12 HOURS 500 MILLIGRAMS 269281 RxNorm TAKE 500 MILLIGRAMS ORAL EVERY 12 [...] System No Known Drug Allergies Moderate Active 455379141 SNOMED-CT Plan of Treatment No Data Found Encounters Encounter Diagnosis Start Date Code Code Sys tem Postprocedural fever 05/03/2021 SNOMED- CT Personal Care Team Section Performer Name Performer Role Active Date Inactive Da te
--- OUTSIDE RECORDS SUMMARY | 2024-08-02 16:40 | XMS_ITS ---
Author Organization Unknown Address [address] [place] [phone] Phone Care Team Providers Care Mica Plate Layer Name Role Phone DANNY TRACEY DPM Attending Unavailable IKER HARRIS Primary Unavailable Social History Type Status Start Date End Date Code Code Syst em Smoking History Never smoker (Never Smoked) 607409300 SNOMED CT Sex Male Medications Medication Start Date End Date Route Frequency Dose Code Code System Medication Instructions Home Meds Ciprofloxacin 500MG Oral Tablet 05/04/2021 Unknown ORAL EVERY 12 HOURS 500 MILLIGRAMS 727199 RxNorm TAKE 500 MILLIGRAMS ORAL EVERY 12 [...] System No Known Drug Allergies Moderate Active 416133550 SNOMED-CT Plan of Treatment No Data Found Encounters Encounter Diagnosis Start Date Code Code Sys tem Right tarsal tunnel syndrome 05/15/2021 [id number] 100 SNOMED-CT Personal Care Team Section Performer Name Performer Role Active Date Inactive Da te
[2024-08-02 22:33] LABS: PSA, Diagnostic 9.1 ng/mL (<=4.5)
== END 2024-08-02 16:33 | disposition home or self-care (01) ==
LOC: NCHCN 16:32
PROVIDERS: PCP Internal Medicine; Visit Provider Internal Medicine
DX: E78.5 Hyperlipidemia, unspecified (principal); E66.9 Obesity, unspecified; R97.20 Elevated prostate specific antigen [PSA]
CPT/HCPCS: 80061; 82947; 84153

== ENCOUNTER 2025-01-31 13:44 | Outpatient (REF) | payer MEDICARE, SELFPAY ==
[2025-01-31 15:06] LABS: Anion Gap 7.4 mmol/L (3-11); BUN 18 mg/dL (7-18); CO2 28.6 mmol/L (21.0-32.0); CREATININE 1.1 mg/dL (0.70-1.30); Calcium 9.5 mg/dL (8.5-10.1); Calculated LDL 139 mg/dL (<100); Chloride 108 mmol/L (98-107); Cholesterol 236 mg/dL (<200); Glucose 98 mg/dL (74-106); HDL Cholesterol 52 mg/dL (>or=40); Potassium 4.6 mmol/L (3.5-5.1); Sodium 144 mmol/L (136-145); Triglyceride 228 mg/dL (<150)
[2025-01-31 22:26] LABS: PSA, Screening 9.1 ng/mL (<=4.5)
== END 2025-01-31 13:45 | disposition home or self-care (01) ==
LOC: NCHCN 13:44
PROVIDERS: PCP Internal Medicine; Visit Provider Internal Medicine
DX: E78.5 Hyperlipidemia, unspecified (principal); R97.20 Elevated prostate specific antigen [PSA]; R73.01 Impaired fasting glucose
CPT/HCPCS: 80048; 80061; 84153

== ENCOUNTER 2025-07-05 20:45 | Outpatient (REF) | payer MEDICARE, SELFPAY ==
[2025-07-05 21:46] LABS: Anion Gap 10.2 mmol/L (3-11); BUN 25 mg/dL (7-18); CO2 26.8 mmol/L (21.0-32.0); Calcium 9.4 mg/dL (8.5-10.1); Chloride 105 mmol/L (98-107); Estimated GFR 66.70 (mL/min/1.73m2); Glucose 110 mg/dL (74-106); Potassium 3.9 mmol/L (3.5-5.1); Sodium 142 mmol/L (136-145)
== END 2025-07-05 20:46 | disposition home or self-care (01) ==
LOC: LBN 20:45
PROVIDERS: PCP Internal Medicine; Visit Provider Urology
DX: N17.9 Acute kidney failure, unspecified (principal)
CPT/HCPCS: 80048

== ENCOUNTER 2025-07-12 15:30 | Outpatient (REF) | payer MEDICARE, SELFPAY ==
[2025-07-12 15:38] LABS: Anion Gap 10.4 mmol/L (3-11); BUN 19 mg/dL (7-18); CO2 25.6 mmol/L (21.0-32.0); Calcium 9.3 mg/dL (8.5-10.1); Chloride 108 mmol/L (98-107); Estimated GFR 74.04 (mL/min/1.73m2); Glucose 106 mg/dL (74-106); Potassium 4.4 mmol/L (3.5-5.1); Sodium 144 mmol/L (136-145)
[2025-07-12 17:04] LABS: Hemoglobin A1C 5.7 % (<5.7)
== END 2025-07-12 15:31 | disposition home or self-care (01) ==
LOC: NCHCN 15:30
PROVIDERS: PCP Internal Medicine; Visit Provider Nurse Practitioner Family
DX: R73.9 Hyperglycemia, unspecified (principal); N17.9 Acute kidney failure, unspecified
CPT/HCPCS: 80048; 83036

== ENCOUNTER 2025-08-10 07:57 | Outpatient (REF) | payer MEDICARE, SELFPAY ==
[2025-08-10 14:46] LABS: Abs Immature Grans 0.01 10^3/uL (0.0-0.06); HCT 43.4 % (40.0-50.0); HGB 14.8 g/dL (13.5-17.5); Immature Grans % 0.2 %; MCH 31.8 pg (27.0-33.0); MCHC 34.1 % (32.0-36.0); MCV 93 fL (80-95); MPV 11.5 fL (8.0-11.0); Platelet Count 158 10^3/uL (130-400); RBC 4.65 10^6/uL (4.36-5.78); RDW 12.7 % (11.8-14.1); RDW-SD 43.3 fL; WBC 4.74 10^3/uL (4.4-10.8)
[2025-08-10 15:36] LABS: ALT 39 U/L (16-63); AST 28 U/L (15-37); Albumin 4.0 g/dL (3.4-5.0); Alkaline Phosphatase 66 U/L (46-116); Anion Gap 11.1 mmol/L (3-11); BUN 17 mg/dL (7-18); Bilirubin, Total 0.6 mg/dL (0.2-1.0); CO2 23.9 mmol/L (21.0-32.0); Calcium 9.1 mg/dL (8.5-10.1); Calculated LDL 51 mg/dL (<100); Chloride 107 mmol/L (98-107); Cholesterol 131 mg/dL (<200); Estimated GFR 83.01 (mL/min/1.73m2); Glucose 160 mg/dL (74-106); HDL Cholesterol 43 mg/dL (>or=40); Potassium 4.2 mmol/L (3.5-5.1); Sodium 142 mmol/L (136-145); Total Protein 6.7 g/dL (6.4-8.2); Triglyceride 186 mg/dL (<150)
[2025-08-10 22:24] LABS: PSA, Diagnostic 10.2 ng/mL (<=4.5)
== END 2025-08-10 07:58 | disposition home or self-care (01) ==
LOC: NCHCN 07:57
PROVIDERS: PCP Internal Medicine; Visit Provider Internal Medicine
DX: E78.5 Hyperlipidemia, unspecified (principal); R97.20 Elevated prostate specific antigen [PSA]
CPT/HCPCS: 80053; 80061; 84153; 85025